=== PATIENT | female | born 1990 | race Caucasian/White ===

== ENCOUNTER 2020-07-12 22:16 | Emergency (ER) | payer BC ==
[~2020-07-12] VITALS: Ht 157.5 cm; Wt 51.3 kg
[2020-07-12 22:33] VITALS: BP 117/79
[2020-07-12] MEDS ORDERED: ALPR0.5T PO (23:03)
== END 2020-07-12 23:15 | disposition home or self-care (01) ==
LOC: ER 22:18
DX: F41.9 Anxiety disorder, unspecified (principal); Z79.899 Other long term (current) drug therapy